=== PATIENT | male | born 1955 | race Caucasian/White ===

== ENCOUNTER 2018-10-19 17:27 | Inpatient (IN) | payer MEDICARE ==
[~2018-10-19] VITALS: Ht 170.2 cm; Wt 87.1 kg
[2018-10-19 17:43] LABS: BASOPHILS # (AUTO) 0.1 K/uL (0.0-8.0); BASOPHILS % (AUTO) 1.7 % (0.0-2.0); EOSINOPHILS # (AUTO) 0.2 K/uL (0.0-0.7); EOSINOPHILS % (AUTO) 3.9 % (0.0-7.0); HEMATOCRIT 38.5 % (36.7-47.1); HEMOGLOBIN 12.8 g/dL (12.5-16.3); LYMPHOCYTES # (AUTO) 1.7 K/uL (20.0-40.0); LYMPHOCYTES % (AUTO) 30.4 % (20.5-51.5); MEAN CORPUSCULAR HEMOGLOBIN 30.6 uug (23.8-33.4); MEAN CORPUSCULAR HGB CONC 33 g/dL (32.5-36.3); MEAN CORPUSCULAR VOLUME 92.2 fL (73.0-96.2); MONOCYTES # (AUTO) 0.8 K/uL (2.0-10.0); NEUTROPHILS # (AUTO) 2.9 K/uL (1.8-8.9); PLATELET COUNT (AUTO) 185 K/uL (152-348); RED BLOOD CELL COUNT(AUTO) 4.18 MIL/uL (4.06-5.63); WHITE BLOOD COUNT (AUTO) 5.7 K/uL (3.6-10.2)
[2018-10-19 17:51] LABS: CARBON DIOXIDE 26 mmol/L (21-32); CHLORIDE 107 mmol/L (98-107); CREATININE 1.2 mg/dL (0.6-1.3); GLUCOSE 92 mg/dL (74-106); POTASSIUM 3.6 mmol/L (3.5-5.1); UREA NITROGEN, BLOOD 24 mg/dL (7-18)
[2018-10-19 17:57] LABS: ALANINE AMINOTRANSFERASE 18 U/L (16-63); ALKALINE PHOSPHATASE 105 U/L (50-136); ASPARTATE AMINOTRANSFERASE 18 U/L (15-37); BILIRUBIN,DIRECT 0.1 mg/dL (0.0-0.2); BILIRUBIN,TOTAL 0.3 mg/dL (0.2-1.0); TOTAL PROTEIN, SERUM 6.9 g/dL (6.4-8.2)
[2018-10-19 17:58] LABS: ACETAMINOPHEN < 2.0 ug/mL (10-30)
[2018-10-19 18:00] LABS: ETHANOL < 3 MG/DL (0-0)
[2018-10-19] MEDS ORDERED: TEMA30CA PO (18:01)
[2018-10-19] MEDS ORDERED: CLON0.1T PO (18:01)
[2018-10-19] MEDS ORDERED: IPRA0.2S48 HHN (18:01)
[2018-10-19] MEDS ORDERED: CHOL200074 PO (18:01)
[2018-10-19] MEDS ORDERED: DOCU-270 PO (18:01)
[2018-10-19] MEDS ORDERED: FURO-151 PO (18:01)
[2018-10-19] MEDS ORDERED: DIVA250T4 PO (18:01)
[2018-10-19] MEDS ORDERED: POTA20TA83 PO (18:01)
[2018-10-19] MEDS ORDERED: ARIP5TAB10 PO (18:01)
[2018-10-19] MEDS ORDERED: LORA1TAB PO (18:01)
[2018-10-19] MEDS ORDERED: ALBU2.5V38 HHN (18:01)
[2018-10-19] MEDS ORDERED: LOSA50TA39 PO (18:01)
[2018-10-19 19:09] LABS: *BILIRUBIN,URIN NEGATIVE (NEGATIVE); *BLOOD, URINE NEGATIVE (NEGATIVE); *CLARITY,URINE CLEAR (CLEAR); *COLOR,URINE YELLOW (YELLOW); *KETONES,URINE NEGATIVE (NEGATIVE); *UROBILINOGEN,URINE 0.2 E.U./dl (NORMAL); LEUKOCYTE ESTERASE ,URINE NEGATIVE (NEGATIVE); NITRITE, URINE NEGATIVE (NEGATIVE); PH,URINE 5.5 (5.0-8.0); UGLUCOSE NEGATIVE (NEGATIVE)
[2018-10-19 19:27] LABS: *AMPHETAMINE, URINE NEGATIVE (NEGATIVE); *BARBITURATE, URINE NEGATIVE (NEGATIVE); *CANNABINOID, URINE NEGATIVE (NEGATIVE); *COCCAINE, URINE NEGATIVE (NEGATIVE); *OPIATE, URINE NEGATIVE (NEGATIVE); *PHENCYCLIDINE SCREEN,URINE NEGATIVE (NEGATIVE)
[2018-10-19] MEDS ORDERED: MAG HYDROX/AL HYDROX/SIMETH 30 ML LIQUID UDC PO PRN (20:00)
[2018-10-19] MEDS ORDERED: MAGNESIUM HYDROXIDE 30 ML LIQUID UDC PO PRN (20:00)
[2018-10-19] MEDS ORDERED: ACETAMINOPHEN 325 MG TABLET PO PRN (20:00)
[2018-10-19] MEDS ORDERED: ALBUTEROL SULFATE 2.5 MG/ 0.5 ML NEBU NEB PRN (21:15)
[2018-10-19] MEDS ORDERED: IPRATROPIUM BROMIDE 0.5 MG/2.5 ML NEBU NEB PRN (21:15)
[2018-10-19] MEDS: CLONAZEPAM 0.5 MG TABLET PO PRN (21:44)
[2018-10-20] MEDS: CLONAZEPAM 0.5 MG TABLET PO PRN (02:41)
[2018-10-20 07:30] VITALS: BP 122/90
[2018-10-20] MEDS: CLONIDINE HCL 0.1 MG TABLET PO SCH (09:00)
[2018-10-20] MEDS: LOSARTAN POTASSIUM 50 MG TABLET PO SCH (09:00)
[2018-10-20] MEDS: CHOLECALCIFEROL 1,000 UNIT TABLET PO SCH (09:00)
[2018-10-20] MEDS: DOCUSATE SODIUM 100 MG CAPSULE PO SCH ×2 (10:06→17:31)
[2018-10-20] MEDS: POTASSIUM CHLORIDE 20 MEQ TAB.PRT.SR PO SCH (10:06)
[2018-10-20] MEDS: FUROSEMIDE 40 MG TABLET PO SCH (10:09)
[2018-10-20] MEDS: ARIPIPRAZOLE 5 MG TABLET PO SCH ×2 (13:10→17:31)
[2018-10-20] MEDS: DIVALPROEX 250 MG TABLET.DR PO SCH ×2 (13:10→17:32)
[2018-10-20 16:00] VITALS: BP 130/86
[2018-10-20 20:53] VITALS: BP 133/87
[2018-10-20] MEDS: TEMAZEPAM 7.5 MG CAPSULE PO PRN (22:19)
[2018-10-21] MEDS: CLONAZEPAM 0.5 MG TABLET PO PRN ×2 (01:28→23:27)
[2018-10-21 07:30] VITALS: BP 119/91
[2018-10-21] MEDS: CLONIDINE HCL 0.1 MG TABLET PO SCH (09:00)
[2018-10-21] MEDS: LOSARTAN POTASSIUM 50 MG TABLET PO SCH (09:00)
[2018-10-21] MEDS: DOCUSATE SODIUM 100 MG CAPSULE PO SCH ×2 (09:26→17:18)
[2018-10-21] MEDS: FUROSEMIDE 40 MG TABLET PO SCH (09:27)
[2018-10-21] MEDS: POTASSIUM CHLORIDE 20 MEQ TAB.PRT.SR PO SCH (09:27)
[2018-10-21] MEDS: CHOLECALCIFEROL 1,000 UNIT TABLET PO SCH (09:28)
[2018-10-21] MEDS: ARIPIPRAZOLE 5 MG TABLET PO SCH ×3 (10:22→17:18)
[2018-10-21] MEDS: DIVALPROEX 250 MG TABLET.DR PO SCH ×3 (10:22→17:18)
[2018-10-21 15:55] VITALS: BP 148/98
[2018-10-21 20:45] VITALS: BP 138/93
[2018-10-22] MEDS: TEMAZEPAM 7.5 MG CAPSULE PO PRN ×2 (01:47→21:19)
[2018-10-22 07:30] VITALS: BP 139/97
[2018-10-22] MEDS: FUROSEMIDE 40 MG TABLET PO SCH (09:01)
[2018-10-22] MEDS: LOSARTAN POTASSIUM 50 MG TABLET PO SCH (09:02)
[2018-10-22] MEDS: CHOLECALCIFEROL 1,000 UNIT TABLET PO SCH (09:02)
[2018-10-22] MEDS: ARIPIPRAZOLE 5 MG TABLET PO SCH ×3 (09:02→17:24)
[2018-10-22] MEDS: POTASSIUM CHLORIDE 20 MEQ TAB.PRT.SR PO SCH (09:03)
[2018-10-22] MEDS: DOCUSATE SODIUM 100 MG CAPSULE PO SCH ×2 (09:03→17:24)
[2018-10-22] MEDS: DIVALPROEX 250 MG TABLET.DR PO SCH ×3 (09:06→17:24)
[2018-10-22] MEDS: CLONIDINE HCL 0.1 MG TABLET PO SCH (09:08)
[2018-10-22 20:09] VITALS: BP 119/78
[2018-10-22] MEDS: CLONAZEPAM 0.5 MG TABLET PO PRN (23:01)
[2018-10-23 06:57] LABS: BILIRUBIN,TOTAL 0.6 mg/dL (0.2-1.0); CREATININE 1.1 mg/dL (0.6-1.3); TOTAL PROTEIN, SERUM 7.1 g/dL (6.4-8.2)
[2018-10-23 07:30] VITALS: BP 129/98
[2018-10-23] MEDS: ARIPIPRAZOLE 5 MG TABLET PO SCH ×3 (08:30→16:02)
[2018-10-23] MEDS: CHOLECALCIFEROL 1,000 UNIT TABLET PO SCH (08:30)
[2018-10-23] MEDS: POTASSIUM CHLORIDE 20 MEQ TAB.PRT.SR PO SCH (08:30)
[2018-10-23] MEDS: FUROSEMIDE 40 MG TABLET PO SCH (08:31)
[2018-10-23] MEDS: DOCUSATE SODIUM 100 MG CAPSULE PO SCH ×2 (08:31→16:02)
[2018-10-23] MEDS: CLONIDINE HCL 0.1 MG TABLET PO SCH (08:31)
[2018-10-23] MEDS: DIVALPROEX 250 MG TABLET.DR PO SCH ×3 (08:31→16:02)
[2018-10-23] MEDS: LOSARTAN POTASSIUM 50 MG TABLET PO SCH (08:33)
[2018-10-23 15:39] VITALS: BP 119/80
[2018-10-23 20:11] VITALS: BP 111/71
[2018-10-23] MEDS: CLONAZEPAM 0.5 MG TABLET PO PRN (20:38)
[2018-10-23] MEDS: TEMAZEPAM 7.5 MG CAPSULE PO PRN (23:30)
[2018-10-24] MEDS: CLONAZEPAM 0.5 MG TABLET PO PRN ×3 (02:24→22:39)
[2018-10-24 07:30] VITALS: BP 143/81
[2018-10-24] MEDS: DOCUSATE SODIUM 100 MG CAPSULE PO SCH ×2 (08:12→16:17)
[2018-10-24] MEDS: CHOLECALCIFEROL 1,000 UNIT TABLET PO SCH (08:12)
[2018-10-24] MEDS: LOSARTAN POTASSIUM 50 MG TABLET PO SCH (08:13)
[2018-10-24] MEDS: CLONIDINE HCL 0.1 MG TABLET PO SCH (08:13)
[2018-10-24] MEDS: FUROSEMIDE 40 MG TABLET PO SCH (08:13)
[2018-10-24] MEDS: DIVALPROEX 250 MG TABLET.DR PO SCH ×2 (08:13→12:07)
[2018-10-24] MEDS: POTASSIUM CHLORIDE 20 MEQ TAB.PRT.SR PO SCH (08:13)
[2018-10-24] MEDS: ARIPIPRAZOLE 5 MG TABLET PO SCH ×3 (08:13→16:17)
[2018-10-24 16:00] VITALS: BP 119/70
[2018-10-24] MEDS ORDERED: DIVALPROEX 250 MG TABLET.DR PO SCH (17:00)
[2018-10-24] MEDS: DIVALPROEX 500 MG TABLET.DR PO SCH (17:01)
[2018-10-24 20:20] VITALS: BP 102/55
[2018-10-24 20:21] VITALS: BP 135/88
[2018-10-25] MEDS: TEMAZEPAM 7.5 MG CAPSULE PO PRN ×2 (00:58→23:08)
[2018-10-25 07:30] VITALS: BP 149/92
[2018-10-25 07:37] LABS: PHOSPHOROUS 3.5 mg/dL (2.5-4.9); POTASSIUM 4.1 mmol/L (3.5-5.1); URIC ACID 5.2 mg/dL (3.5-7.2)
[2018-10-25] MEDS: DOCUSATE SODIUM 100 MG CAPSULE PO SCH ×2 (08:38→16:19)
[2018-10-25] MEDS: DIVALPROEX 500 MG TABLET.DR PO SCH ×2 (08:38→16:19)
[2018-10-25] MEDS: ARIPIPRAZOLE 5 MG TABLET PO SCH ×3 (08:38→16:19)
[2018-10-25] MEDS: POTASSIUM CHLORIDE 20 MEQ TAB.PRT.SR PO SCH (08:38)
[2018-10-25] MEDS: LOSARTAN POTASSIUM 50 MG TABLET PO SCH (08:39)
[2018-10-25] MEDS: CLONIDINE HCL 0.1 MG TABLET PO SCH (08:39)
[2018-10-25] MEDS: FUROSEMIDE 40 MG TABLET PO SCH (08:39)
[2018-10-25] MEDS: CHOLECALCIFEROL 1,000 UNIT TABLET PO SCH (08:39)
[2018-10-25 09:47] LABS: THYROID STIMULATING HORMONE 0.758 mIU/mL (0.358-3.740)
[2018-10-25] MEDS: CLONAZEPAM 0.5 MG TABLET PO PRN (14:28)
[2018-10-25 16:00] VITALS: BP 119/80
[2018-10-25 19:44] VITALS: BP 138/90
[2018-10-26 07:30] VITALS: BP 138/95
[2018-10-26] MEDS: FUROSEMIDE 40 MG TABLET PO SCH (09:21)
[2018-10-26] MEDS: DIVALPROEX 500 MG TABLET.DR PO SCH ×2 (09:21→17:22)
[2018-10-26] MEDS: CHOLECALCIFEROL 1,000 UNIT TABLET PO SCH (09:21)
[2018-10-26] MEDS: ARIPIPRAZOLE 5 MG TABLET PO SCH ×3 (09:22→17:22)
[2018-10-26] MEDS: POTASSIUM CHLORIDE 20 MEQ TAB.PRT.SR PO SCH (09:22)
[2018-10-26] MEDS: LOSARTAN POTASSIUM 50 MG TABLET PO SCH (09:22)
[2018-10-26] MEDS: DOCUSATE SODIUM 100 MG CAPSULE PO SCH ×2 (09:22→17:22)
[2018-10-26] MEDS: CLONIDINE HCL 0.1 MG TABLET PO SCH (09:23)
[2018-10-26 16:00] VITALS: BP 122/85
[2018-10-26 19:52] VITALS: BP 126/77
[2018-10-26] MEDS: CLONAZEPAM 0.5 MG TABLET PO PRN (20:06)
[2018-10-27] MEDS: TEMAZEPAM 7.5 MG CAPSULE PO PRN (00:08)
[2018-10-27 07:30] VITALS: BP 126/81
[2018-10-27] MEDS: ARIPIPRAZOLE 5 MG TABLET PO SCH ×3 (08:15→16:11)
[2018-10-27] MEDS: CHOLECALCIFEROL 1,000 UNIT TABLET PO SCH (08:16)
[2018-10-27] MEDS: POTASSIUM CHLORIDE 20 MEQ TAB.PRT.SR PO SCH (08:16)
[2018-10-27] MEDS: DIVALPROEX 500 MG TABLET.DR PO SCH ×2 (08:16→16:11)
[2018-10-27] MEDS: CLONIDINE HCL 0.1 MG TABLET PO SCH (08:16)
[2018-10-27] MEDS: DOCUSATE SODIUM 100 MG CAPSULE PO SCH ×2 (08:16→16:11)
[2018-10-27] MEDS: FUROSEMIDE 40 MG TABLET PO SCH (08:17)
[2018-10-27] MEDS: LOSARTAN POTASSIUM 50 MG TABLET PO SCH (08:17)
[2018-10-27] MEDS: CLONAZEPAM 0.5 MG TABLET PO PRN (14:14)
[2018-10-27 16:00] VITALS: BP 114/70
[2018-10-27 20:43] VITALS: BP 138/81
[2018-10-28 07:30] VITALS: BP 123/83
[2018-10-28] MEDS: CHOLECALCIFEROL 1,000 UNIT TABLET PO SCH (08:00)
[2018-10-28] MEDS: FUROSEMIDE 40 MG TABLET PO SCH (08:00)
[2018-10-28] MEDS: DIVALPROEX 500 MG TABLET.DR PO SCH ×2 (08:01→16:00)
[2018-10-28] MEDS: DOCUSATE SODIUM 100 MG CAPSULE PO SCH ×2 (08:01→16:00)
[2018-10-28] MEDS: ARIPIPRAZOLE 5 MG TABLET PO SCH ×3 (08:01→16:00)
[2018-10-28] MEDS: POTASSIUM CHLORIDE 20 MEQ TAB.PRT.SR PO SCH (08:01)
[2018-10-28] MEDS: LOSARTAN POTASSIUM 50 MG TABLET PO SCH (08:05)
[2018-10-28] MEDS: CLONIDINE HCL 0.1 MG TABLET PO SCH (08:05)
[2018-10-28 08:13] LABS: BASOPHILS # (AUTO) 0.1 K/uL (0.0-8.0); BASOPHILS % (AUTO) 1.8 % (0.0-2.0); EOSINOPHILS # (AUTO) 0.2 K/uL (0.0-0.7); EOSINOPHILS % (AUTO) 4.7 % (0.0-7.0); HEMATOCRIT 36.9 % (36.7-47.1); HEMOGLOBIN 12.4 g/dL (12.5-16.3); LYMPHOCYTES % (AUTO) 19.6 % (20.5-51.5); MEAN CORPUSCULAR HEMOGLOBIN 31.1 uug (23.8-33.4); MEAN CORPUSCULAR HGB CONC 34 g/dL (32.5-36.3); MEAN CORPUSCULAR VOLUME 92.3 fL (73.0-96.2); MONOCYTES # (AUTO) 0.9 K/uL (2.0-10.0); MONOCYTES % (AUTO) 16.8 % (0.0-11.0); NEUTROPHILS % (AUTO) 57.1 % (38.5-71.5); PLATELET COUNT (AUTO) 195 K/uL (152-348); WHITE BLOOD COUNT (AUTO) 5.2 K/uL (3.6-10.2)
[2018-10-28 09:23] LABS: CREATININE 1.1 mg/dL (0.6-1.3); PHOSPHOROUS 3.8 mg/dL (2.5-4.9); POTASSIUM 3.8 mmol/L (3.5-5.1)
[2018-10-28 13:58] LABS: BAND % (MANUAL) 2 % (0-10); BASOPHILS % (MANUAL) 1 % (0-2); EOSINOPHILS % (MANUAL) 6 % (0-8); LYMPHOCYTES % (MANUAL) 20 % (20-40); MONOCYTES % (MANUAL) 15 % (2-10); NEUTROPHILS % (MANUAL) 56 % (42-75)
[2018-10-28 16:00] VITALS: BP 124/83
[2018-10-28 19:48] VITALS: BP 132/87
[2018-10-28] MEDS: CLONAZEPAM 0.5 MG TABLET PO PRN (19:51)
[2018-10-28] MEDS: TEMAZEPAM 7.5 MG CAPSULE PO PRN (23:37)
[2018-10-29 07:48] VITALS: BP 134/86
[2018-10-29] MEDS: CHOLECALCIFEROL 1,000 UNIT TABLET PO SCH (08:20)
[2018-10-29] MEDS: POTASSIUM CHLORIDE 20 MEQ TAB.PRT.SR PO SCH (08:20)
[2018-10-29] MEDS: DIVALPROEX 500 MG TABLET.DR PO SCH (08:20)
[2018-10-29] MEDS: DOCUSATE SODIUM 100 MG CAPSULE PO SCH ×2 (08:20→16:01)
[2018-10-29] MEDS: ARIPIPRAZOLE 5 MG TABLET PO SCH ×3 (08:20→16:01)
[2018-10-29] MEDS: CLONIDINE HCL 0.1 MG TABLET PO SCH (08:20)
[2018-10-29] MEDS: LOSARTAN POTASSIUM 50 MG TABLET PO SCH (08:21)
[2018-10-29] MEDS: FUROSEMIDE 40 MG TABLET PO SCH (08:33)
[2018-10-29] MEDS ORDERED: ALBUTEROL SULFATE 2.5 MG/3 ML NEBU NEB PRN (14:45)
[2018-10-29 15:46] VITALS: BP 109/73
[2018-10-29 20:15] VITALS: BP 117/76
[2018-10-29] MEDS: VALPROIC ACID 250 MG/5 ML LIQUID UDC PO SCH (20:18)
[2018-10-29] MEDS ORDERED: VALPROIC ACID 250 MG/5 ML LIQUID UDC PO SCH (21:00)
[2018-10-29] MEDS: TEMAZEPAM 7.5 MG CAPSULE PO PRN (22:57)
[2018-10-30 07:30] VITALS: BP 133/84
[2018-10-30] MEDS: DOCUSATE SODIUM 100 MG CAPSULE PO SCH (08:26)
[2018-10-30] MEDS: POTASSIUM CHLORIDE 20 MEQ TAB.PRT.SR PO SCH (08:26)
[2018-10-30] MEDS: CHOLECALCIFEROL 1,000 UNIT TABLET PO SCH (08:26)
[2018-10-30 08:28] VITALS: BP 133/84
[2018-10-30] MEDS: LOSARTAN POTASSIUM 50 MG TABLET PO SCH (08:28)
[2018-10-30] MEDS: ARIPIPRAZOLE 5 MG TABLET PO SCH (08:28)
[2018-10-30] MEDS: CLONIDINE HCL 0.1 MG TABLET PO SCH (08:28)
[2018-10-30] MEDS: VALPROIC ACID 250 MG/5 ML LIQUID UDC PO SCH (08:29)
[2018-10-30] MEDS: FUROSEMIDE 40 MG TABLET PO SCH (08:29)
== END 2018-10-30 12:00 | DRG 885 ==
LOC: ER 17:31 → GPS 18:58
PROVIDERS: ADMIT Psychiatry & Neurology Psychiatry; ATTEND Nurse Practitioner Acute Care
DX: F29 Unspecified psychosis not due to a substance or known physiological condition (principal); N18.9 Chronic kidney disease, unspecified; I13.0 Hypertensive heart and chronic kidney disease with heart failure and stage 1 through stage 4 chronic kidney disease, or unspecified chronic kidney disease; F03.91 Unspecified dementia, unspecified severity, with behavioral disturbance; E87.1 Hypo-osmolality and hyponatremia; I50.9 Heart failure, unspecified; J44.9 Chronic obstructive pulmonary disease, unspecified; E66.9 Obesity, unspecified; Z68.29 Body mass index [BMI] 29.0-29.9, adult; Z71.3 Dietary counseling and surveillance; Z86.59 Personal history of other mental and behavioral disorders; I25.10 Atherosclerotic heart disease of native coronary artery without angina pectoris; Z79.899 Other long term (current) drug therapy; F17.210 Nicotine dependence, cigarettes, uncomplicated; T50.1X5A Adverse effect of loop [high-ceiling] diuretics, initial encounter; Y92.099 Unspecified place in other non-institutional residence as the place of occurrence of the external cause; N28.9 Disorder of kidney and ureter, unspecified
CPT/HCPCS: 36415; 80164; 80307; 83735; 84100; 84443; 84550; 85025; 93005; 97116; A4663; G0480; G0480-TC; J3490

== ENCOUNTER 2018-12-13 21:24 | Inpatient (IN) | payer MEDICARE ==
[~2018-12-13] VITALS: Ht 172.7 cm; Wt 85.3 kg
[~2018-12-13 21:24] MED LIST: ALBU2.5V38 HHN; CHOL200074 PO; CLON0.1T PO; DOCU-270 PO; FURO-151 PO; IPRA0.2S48 HHN; LOSA50TA39 PO; POTA20TA83 PO
[2018-12-13] MEDS ORDERED: CICL15CR12 TP (22:12)
[2018-12-13] MEDS ORDERED: DIVA-78 PO (22:12)
[2018-12-13] MEDS ORDERED: DIVA250T4 PO (22:12)
[2018-12-13] MEDS ORDERED: [UNRECOGNIZED DRUG - SUPPLY] INH (22:12)
[2018-12-13] MEDS ORDERED: TRIA15OI9 TP (22:12)
[2018-12-13] MEDS ORDERED: LORA1TAB PO (22:12)
[2018-12-13] MEDS ORDERED: ARIP5TAB10 PO (22:12)
[2018-12-13] MEDS ORDERED: TEMA30CA PO (22:12)
--- NOTE | 2018-12-13 22:22 | NUR ---
Pt provided urine sample, sent to lab.
[2018-12-13 22:32] LABS: *BILIRUBIN,URIN NEGATIVE (NEGATIVE); *BLOOD, URINE NEGATIVE (NEGATIVE); *CLARITY,URINE CLEAR (CLEAR); *COLOR,URINE YELLOW (YELLOW); *KETONES,URINE NEGATIVE (NEGATIVE); *UROBILINOGEN,URINE 0.2 E.U./dl (NORMAL); LEUKOCYTE ESTERASE ,URINE NEGATIVE (NEGATIVE); NITRITE, URINE NEGATIVE (NEGATIVE); PH,URINE 6.5 (5.0-8.0); UGLUCOSE NEGATIVE (NEGATIVE)
[2018-12-13 22:33] LABS: BASOPHILS # (AUTO) 0.1 K/uL (0.0-8.0); EOSINOPHILS # (AUTO) 0.3 K/uL (0.0-0.7); EOSINOPHILS % (AUTO) 4.9 % (0.0-7.0); HEMATOCRIT 38.3 % (36.7-47.1); HEMOGLOBIN 12.8 g/dL (12.5-16.3); LYMPHOCYTES # (AUTO) 1.8 K/uL (20.0-40.0); LYMPHOCYTES % (AUTO) 28.5 % (20.5-51.5); MEAN CORPUSCULAR HEMOGLOBIN 31.2 uug (23.8-33.4); MEAN CORPUSCULAR HGB CONC 34 g/dL (32.5-36.3); MONOCYTES # (AUTO) 0.9 K/uL (2.0-10.0); MONOCYTES % (AUTO) 14.1 % (0.0-11.0); NEUTROPHILS # (AUTO) 3.2 K/uL (1.8-8.9); NEUTROPHILS % (AUTO) 50.5 % (38.5-71.5); PLATELET COUNT (AUTO) 142 K/uL (152-348); RED BLOOD CELL COUNT(AUTO) 4.12 MIL/uL (4.06-5.63); WHITE BLOOD COUNT (AUTO) 6.3 K/uL (3.6-10.2)
[2018-12-13 22:40] LABS: CARBON DIOXIDE 25 mmol/L (21-32); CHLORIDE 110 mmol/L (98-107); CREATININE 1.5 mg/dL (0.6-1.3); GLUCOSE 92 mg/dL (74-106); POTASSIUM 3.9 mmol/L (3.5-5.1); UREA NITROGEN, BLOOD 27 mg/dL (7-18)
[2018-12-13 22:42] LABS: *AMPHETAMINE, URINE NEGATIVE (NEGATIVE); *BARBITURATE, URINE NEGATIVE (NEGATIVE); *CANNABINOID, URINE NEGATIVE (NEGATIVE); *COCCAINE, URINE NEGATIVE (NEGATIVE); *OPIATE, URINE NEGATIVE (NEGATIVE); *PHENCYCLIDINE SCREEN,URINE NEGATIVE (NEGATIVE)
[2018-12-13 22:45] LABS: ALANINE AMINOTRANSFERASE 42 U/L (16-63); ALKALINE PHOSPHATASE 95 U/L (50-136); ASPARTATE AMINOTRANSFERASE 33 U/L (15-37); BILIRUBIN,DIRECT 0.1 mg/dL (0.0-0.2); BILIRUBIN,TOTAL 0.4 mg/dL (0.2-1.0); TOTAL PROTEIN, SERUM 6.8 g/dL (6.4-8.2)
[2018-12-13 22:50] LABS: ETHANOL < 3 MG/DL (0-0)
[2018-12-13 22:52] LABS: ACETAMINOPHEN < 2.0 ug/mL (10-30)
[2018-12-13 22:53] LABS: THYROID STIMULATING HORMONE 0.878 mIU/mL (0.358-3.740)
--- NOTE | 2018-12-13 23:21 | NUR ---
Pt medically cleared by Dr. Osman.
--- NOTE | 2018-12-13 23:28 | NUR ---
Report given to [facility]. All belongings with patient.
[2018-12-14] MEDS ORDERED: MAG HYDROX/AL HYDROX/SIMETH 30 ML LIQUID UDC PO PRN (00:15)
[2018-12-14] MEDS ORDERED: MAGNESIUM HYDROXIDE 30 ML LIQUID UDC PO PRN (00:15)
[2018-12-14] MEDS ORDERED: ACETAMINOPHEN 325 MG TABLET PO PRN (00:15)
[2018-12-14] MEDS ORDERED: BLOOD SUGAR DIAGNOSTIC 1 EACH STRIP VI ONE (00:15)
[2018-12-14] MEDS ORDERED: CLONAZEPAM 0.5 MG TABLET PO PRN (00:15)
--- NOTE | 2018-12-14 03:31 | NUR ---
received to care, at 2335, from the emergency room, on a 72 hour hold for gravely disabled, a transfer from [facility]. according to the hold, he had been observed to be urinating in common areas around the facility. he was also reported to believe that "soviets are out to get staff". he also has been refusing hygiene, care, and refusing to let housekeeping clean his room. upon arrival, he was pleasant, and cooperative. he denied the reports of his behavior. 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 after the interview, he was assisted with a shower, and went to sleep. as of now, he continues to sleep. no distress noted.
--- NOTE | 2018-12-14 06:00 | NUR ---
slept 3.5 hours. is now awake. no distress noted.
[2018-12-14 08:00] VITALS: BP 152/100
--- NOTE | 2018-12-14 09:46 | NUR ---
Patient in room. Calm and cooperative. Alert awake x2-3. Ensured safety. Encouraged to ambulate with walker.
--- NOTE | 2018-12-14 10:49 | NUR ---
FIREARMS REPORT: Ship Engineer completed and submitted a [employer] firearms report for 5250 grave disability certification. A copy of report has been placed in patient chart.
[2018-12-14] MEDS ORDERED: IPRATROPIUM BROMIDE 0.5 MG/2.5 ML NEBU INH PRN (14:30)
[2018-12-14] MEDS ORDERED: ALBUTEROL SULFATE 2.5 MG/3 ML NEBU INH PRN (14:30)
[2018-12-14] MEDS: DIVALPROEX 500 MG TABLET.DR PO SCH ×2 (14:55→20:44)
--- NOTE | 2018-12-14 15:11 | NUR ---
Initial discharge note Patient is a 63 year old male who currently lives at [facility] [[address] [place] [address]; [phone]] assisted living center. Per patient, "i would like to return there". skid worker spoke with Mackenzie [marketing administrative assistant] at [facility] who states patient will be able to return upon discharge. Patient has no next of kin. SW will continue to collaborate with patient and MD to form a safe and proper discharge plan.
[2018-12-14 16:00] VITALS: BP 149/95
[2018-12-14] MEDS: DOCUSATE SODIUM 100 MG CAPSULE PO SCH (17:00)
[2018-12-14 19:16] LABS: *BILIRUBIN,URIN NEGATIVE (NEGATIVE); *BLOOD, URINE NEGATIVE (NEGATIVE); *CLARITY,URINE CLEAR (CLEAR); *COLOR,URINE YELLOW (YELLOW); *KETONES,URINE NEGATIVE (NEGATIVE); *UROBILINOGEN,URINE 0.2 E.U./dl (NORMAL); LEUKOCYTE ESTERASE ,URINE NEGATIVE (NEGATIVE); NITRITE, URINE NEGATIVE (NEGATIVE); UGLUCOSE NEGATIVE (NEGATIVE)
[2018-12-14 19:21] LABS: *CREATININE,URINE 36.8 mg/dL (30-125)
[2018-12-14] MEDS: DIVALPROEX 250 MG TABLET.DR PO SCH (20:44)
[2018-12-14] MEDS: OLANZAPINE ZYDIS 5 MG TAB.RAPDIS PO SCH (20:44)
[2018-12-14 21:17] VITALS: BP 130/90
--- NOTE | 2018-12-14 22:00 | NUR ---
received to care, watching tv with peers, minimal interaction, pleasant upon approach. compliant with medications, snacks, and staff direction. as of 2199, he remains awake, sitting in a chair in his room, quietly. PRN offered for insomnia, but he declined. encouraged to let staff know, if he changes his mind. will continue to monitor closely.
--- NOTE | 2018-12-15 00:30 | NUR ---
appears to be asleep, in the chair, in his room. no distress noted.
--- NOTE | 2018-12-15 01:00 | NUR ---
is now awake. offered PRN medication for sleep, but he declined. remains calm. no distress noted.
--- NOTE | 2018-12-15 06:00 | NUR ---
slept 30 minutes, total. remains sitting in chair in room, quietly. no distress noted.
[2018-12-15 07:17] LABS: BASOPHILS # (AUTO) 0.1 K/uL (0.0-8.0); BASOPHILS % (AUTO) 1.5 % (0.0-2.0); EOSINOPHILS # (AUTO) 0.3 K/uL (0.0-0.7); EOSINOPHILS % (AUTO) 4.4 % (0.0-7.0); HEMATOCRIT 40.1 % (36.7-47.1); HEMOGLOBIN 13.4 g/dL (12.5-16.3); LYMPHOCYTES # (AUTO) 1.5 K/uL (20.0-40.0); LYMPHOCYTES % (AUTO) 22.6 % (20.5-51.5); MEAN CORPUSCULAR HEMOGLOBIN 31.7 uug (23.8-33.4); MEAN CORPUSCULAR HGB CONC 34 g/dL (32.5-36.3); MEAN CORPUSCULAR VOLUME 94.6 fL (73.0-96.2); MONOCYTES % (AUTO) 14.9 % (0.0-11.0); NEUTROPHILS # (AUTO) 3.8 K/uL (1.8-8.9); NEUTROPHILS % (AUTO) 56.6 % (38.5-71.5); PLATELET COUNT (AUTO) 148 K/uL (152-348); RED BLOOD CELL COUNT(AUTO) 4.24 MIL/uL (4.06-5.63); WHITE BLOOD COUNT (AUTO) 6.7 K/uL (3.6-10.2)
[2018-12-15 07:29] LABS: BILIRUBIN,TOTAL 0.7 mg/dL (0.2-1.0); CREATININE 1.2 mg/dL (0.6-1.3); POTASSIUM 3.6 mmol/L (3.5-5.1); TOTAL PROTEIN, SERUM 7.2 g/dL (6.4-8.2)
[2018-12-15 07:30] VITALS: BP 133/101
[2018-12-15 07:45] LABS: MAGNESIUM 1.9 mg/dL (1.8-2.4); PHOSPHOROUS 3.4 mg/dL (2.5-4.9)
[2018-12-15] MEDS ORDERED: CICLOPIROX 0.77% CREAM 30 GM TUBE TP SCH (09:00)
[2018-12-15] MEDS: FUROSEMIDE 40 MG TABLET PO SCH (09:03)
[2018-12-15] MEDS: LOSARTAN POTASSIUM 50 MG TABLET PO SCH (09:03)
[2018-12-15] MEDS: DOCUSATE SODIUM 100 MG CAPSULE PO SCH ×2 (09:03→16:19)
[2018-12-15] MEDS: DIVALPROEX 500 MG TABLET.DR PO SCH ×2 (09:03→20:30)
[2018-12-15] MEDS: CHOLECALCIFEROL 1,000 UNIT TABLET PO SCH (09:03)
[2018-12-15] MEDS: POTASSIUM CHLORIDE 20 MEQ TAB.PRT.SR PO SCH (09:03)
[2018-12-15 16:00] VITALS: BP 127/82
--- NOTE | 2018-12-15 18:34 | NUR ---
patient is awake and walking around, need frequent redirection. Patient is calm and cooperative. No signs of distress. compliant with medications. will endorse to oncoming nurse.
[2018-12-15] MEDS: DIVALPROEX 250 MG TABLET.DR PO SCH (20:29)
[2018-12-15] MEDS: OLANZAPINE ZYDIS 5 MG TAB.RAPDIS PO SCH (20:30)
[2018-12-15 21:41] VITALS: BP 132/89
--- NOTE | 2018-12-15 22:28 | NUR ---
RECIVED PATIENT IN TV ROOM INTERACTING WITH PEERS. PLEASANT UPON APPROACH BUT COULD BE HEARD MUTTERING UNDER HIS BREATH 'FUCK YOU'.COMPLIANT WITH MEDS WITH MINIMAL INTERACTION.NO PAIN OR DISCOMFORT WAS MADE IN THIS SHIFT.
[2018-12-16] MEDS: TEMAZEPAM 7.5 MG CAPSULE PO PRN ×2 (01:11→23:56)
--- NOTE | 2018-12-16 06:47 | NUR ---
SLEPT FOR APPROX 02;00HRS.HE WAS GIVEN RESTORIL AT 01;10.WOKE UP LATER AND SAID A 2 HOUR SLEEP IS ENOUGH FOR HIM.CALLED 2 PHONE NUMBERS THIS MORNING TO INFORM FAMILY.ONE WAS A NON WORKING NUMBER AND THE OTHER GAVE A BUSY SIGNAL.
[2018-12-16 07:30] VITALS: BP 143/108
[2018-12-16] MEDS: LOSARTAN POTASSIUM 50 MG TABLET PO SCH (08:35)
[2018-12-16] MEDS: DOCUSATE SODIUM 100 MG CAPSULE PO SCH ×2 (08:36→17:26)
[2018-12-16] MEDS: CHOLECALCIFEROL 1,000 UNIT TABLET PO SCH (08:36)
[2018-12-16] MEDS: DIVALPROEX 500 MG TABLET.DR PO SCH ×2 (08:36→20:16)
[2018-12-16] MEDS: POTASSIUM CHLORIDE 20 MEQ TAB.PRT.SR PO SCH (08:36)
[2018-12-16] MEDS: FUROSEMIDE 40 MG TABLET PO SCH (08:37)
[2018-12-16 16:00] VITALS: BP 139/74
--- NOTE | 2018-12-16 20:00 | NUR ---
RECEIVED PATIENT IN HIS ROOM SITTING IN HIS BED. HE IS NOTED WITH INCONGRUENT MOOD, BRIGHT AFFECT. UNCONTROLLED LAUGHS (FOR NO REASON) LABILE, DISORGANIZED SPEECH, AND DELUSIONAL THINKING. V/S STABLE. PATIENT IS REASSURED FOR HIS SAFETY. HE IS ABLE TO AMBULATE WITH STEADY GAIT WITH THE AID OF A WALKER; HOWEVER, HE NEEDS REDIRECTIONS TO USE HIS WALKER. SAFETY AND FALL PRECAUTION IN PLACE. WILL CONTINUE TO MONITOR.
[2018-12-16 20:08] VITALS: BP 137/96
[2018-12-16] MEDS: OLANZAPINE ZYDIS 5 MG TAB.RAPDIS PO SCH (20:16)
[2018-12-16] MEDS: DIVALPROEX 250 MG TABLET.DR PO SCH (20:16)
--- NOTE | 2018-12-17 07:26 | NUR ---
patient slept for approx 3.30 hrs through the night. Temazepam 7.5mg po prn was given at 0000. it was partially effective. patient continue with bright affect, incongruent mood and flight of ideas. no aggressive/combative bx noted or reported during the shift. will continue to monitor.
[2018-12-17] MEDS: POTASSIUM CHLORIDE 20 MEQ TAB.PRT.SR PO SCH (08:50)
[2018-12-17] MEDS: DIVALPROEX 500 MG TABLET.DR PO SCH ×2 (08:50→20:07)
[2018-12-17] MEDS: DOCUSATE SODIUM 100 MG CAPSULE PO SCH ×2 (08:50→16:34)
[2018-12-17] MEDS: CHOLECALCIFEROL 1,000 UNIT TABLET PO SCH (08:50)
[2018-12-17] MEDS: LOSARTAN POTASSIUM 50 MG TABLET PO SCH (08:51)
[2018-12-17] MEDS: FUROSEMIDE 40 MG TABLET PO SCH (08:52)
[2018-12-17] MEDS: OLANZAPINE 2.5 MG TABLET PO SCH (10:40)
[2018-12-17 10:41] VITALS: BP 155/97
[2018-12-17 15:21] VITALS: BP 146/84
[2018-12-17] MEDS: DIVALPROEX 250 MG TABLET.DR PO SCH (20:07)
[2018-12-17] MEDS: OLANZAPINE ZYDIS 5 MG TAB.RAPDIS PO SCH (20:08)
[2018-12-17 20:30] VITALS: BP 147/86
--- NOTE | 2018-12-17 21:23 | NUR ---
Received patient in the hallway, calm and cooperative, denies SI/HI. med compliant. interacts with other patients. no aggressive behavior noted. vital signs normal. will continue to monitor patient safety.
--- NOTE | 2018-12-17 23:00 | NUR ---
remains calm, and cooperative. observed talking to self, and laughing inappropriately. compliant with medications, and staff direction. as of 2299, he remains awake, but calm. PRN for insomnia was offered, but he declined. will continue to monitor clsoely.
[2018-12-18 07:30] VITALS: BP 156/104
[2018-12-18] MEDS: DIVALPROEX 500 MG TABLET.DR PO SCH ×2 (08:31→20:58)
[2018-12-18] MEDS: CHOLECALCIFEROL 1,000 UNIT TABLET PO SCH (08:31)
[2018-12-18] MEDS: LOSARTAN POTASSIUM 50 MG TABLET PO SCH (08:31)
[2018-12-18] MEDS: DOCUSATE SODIUM 100 MG CAPSULE PO SCH ×2 (08:31→16:03)
[2018-12-18] MEDS: OLANZAPINE 2.5 MG TABLET PO SCH (08:31)
[2018-12-18] MEDS: POTASSIUM CHLORIDE 20 MEQ TAB.PRT.SR PO SCH (08:34)
[2018-12-18] MEDS: FUROSEMIDE 40 MG TABLET PO SCH (08:34)
--- NOTE | 2018-12-18 11:03 | NUR ---
GPS: PATIENT BP WAS NOTED OF ELEVATED WITH 167/123, MEDS GIVEN AND MD AWARE, RECHECK BP 154/105
--- NOTE | 2018-12-18 14:09 | NUR ---
TRIED CALLING BACK PATIENTS MOTHER MORENITA , LEFT MESSAGE , ITS BEEN 3X THAT THE CONTACT INFO USED AND STILL NO RETURN CALL, CALLED [facility] [place] REGARDING THE CONTACT INFO OF RESP. DEMOCRAT, ACCORDING TO ALLAN THAT PATIENTS MOM DISEASED, AND THEY USE THE CONTACT INFO OF SHARRON BRAGG [phone], LEFT MESSAGE WAITING FOR REPLY
--- NOTE | 2018-12-18 15:12 | NUR ---
PATIENT COUSIN SHARRON BRAGG RETURNED CALLED, MADE AWARE OF PATIENTS CONDITION,
[2018-12-18 15:17] VITALS: BP 150/97
[2018-12-18] MEDS: DIVALPROEX 250 MG TABLET.DR PO SCH (20:58)
[2018-12-18] MEDS: OLANZAPINE ZYDIS 5 MG TAB.RAPDIS PO SCH (20:58)
[2018-12-18 21:48] VITALS: BP 147/95
--- NOTE | 2018-12-18 22:00 | NUR ---
received to care, mostly isolative, minimal interactions with peers, but pleasant upon approach. compliant with medications, snacks, and staff direction. as of 2199, he remains awake, sitting in a chair in his room, quietly. PRN offered for insomnia, but he declined. no distress noted. will continue to monitor closely.
[2018-12-18] MEDS: TEMAZEPAM 7.5 MG CAPSULE PO PRN (23:07)
--- NOTE | 2018-12-18 23:07 | NUR ---
PRN restoril, given for insomnia.
--- NOTE | 2018-12-19 | NUR ---
appears to be asleep. no distress noted.
--- NOTE | 2018-12-19 06:00 | NUR ---
slept 3 hours, total. is now awake, watching tv. no distress noted.
[2018-12-19 07:30] VITALS: BP 139/97
[2018-12-19] MEDS: DOCUSATE SODIUM 100 MG CAPSULE PO SCH ×2 (08:17→16:01)
[2018-12-19] MEDS: CHOLECALCIFEROL 1,000 UNIT TABLET PO SCH (08:17)
[2018-12-19] MEDS: OLANZAPINE 5 MG TABLET PO SCH (08:17)
[2018-12-19] MEDS: LOSARTAN POTASSIUM 50 MG TABLET PO SCH (08:17)
[2018-12-19] MEDS: DIVALPROEX 500 MG TABLET.DR PO SCH ×2 (08:17→20:25)
[2018-12-19] MEDS: POTASSIUM CHLORIDE 20 MEQ TAB.PRT.SR PO SCH (08:18)
[2018-12-19] MEDS: FUROSEMIDE 40 MG TABLET PO SCH (08:18)
[2018-12-19] MEDS ORDERED: OLANZAPINE 2.5 MG TABLET PO SCH (09:00)
--- NOTE | 2018-12-19 09:33 | NUR ---
Patient has Payee Received call from Alvarado Monaco [ ] stating he is the patient's cousin, and Payee. Informed SW that he lives several hours away, and if needed he is willing to fly out here should the patient need his help for anything.
[2018-12-19] MEDS ORDERED: DIATRIZOATE MEGLUMINE 300 ML INFUS..BTL ONE (13:13)
[2018-12-19 16:00] VITALS: BP 131/93
--- NOTE | 2018-12-19 16:58 | NUR ---
GPS: RECEIVED PATIENT AOX1, PATIENT AMBULATES ON FWW, PATIENT DENIES SI AND HI, CALM AND COOPERATIVE, COMPLIANT WITH MEDICATION, CONFISCATED PLASTIC BOTTLE FULL OF URINE, PATIENT REMAIN CALM AND ABLE TO REDIRECT, WILL CONTINUE MONITOR
--- NOTE | 2018-12-19 17:40 | NUR ---
patient seen by algebra teacher that drinking from bottle with water and urine , patient redirected, and patient told if he needs water to get it from the nurse on the cup,
[2018-12-19] MEDS: DIVALPROEX 250 MG TABLET.DR PO SCH (20:26)
[2018-12-19] MEDS: OLANZAPINE ZYDIS 5 MG TAB.RAPDIS PO SCH (20:26)
[2018-12-19 20:46] VITALS: BP 139/97
--- NOTE | 2018-12-19 21:33 | NUR ---
PATIENT RECEIVED WONDERING THE UNIT WITH FWW. PATIENT AOX1, DENEIS SI AND HI, PATIENT COMPLIANT WITH MEDICATION, CALM AND COOPERATIVE, WILL CONTINUE TO MONITOR. NO AGGRESSIVE BEHAVIOR NOTED WILL CONTINUE TO MONITOR AND REDIRECT NEEDED.
--- NOTE | 2018-12-20 03:38 | NUR ---
PATIENT REFUSED SLEEPING AID WHEN OFFERED, BECAME LABILE REQUIRED REDIRECTION. WILL CONTINUE TO MONITOR AND REDIRECT NEEDED.
[2018-12-20 07:30] VITALS: BP 147/93
[2018-12-20] MEDS: CHOLECALCIFEROL 1,000 UNIT TABLET PO SCH (08:53)
[2018-12-20] MEDS: OLANZAPINE 5 MG TABLET PO SCH (08:54)
[2018-12-20] MEDS: FUROSEMIDE 40 MG TABLET PO SCH (08:54)
[2018-12-20] MEDS: LOSARTAN POTASSIUM 50 MG TABLET PO SCH (08:54)
[2018-12-20] MEDS: DIVALPROEX 500 MG TABLET.DR PO SCH ×2 (08:54→20:15)
[2018-12-20] MEDS: DOCUSATE SODIUM 100 MG CAPSULE PO SCH ×2 (08:55→17:38)
[2018-12-20] MEDS: POTASSIUM CHLORIDE 20 MEQ TAB.PRT.SR PO SCH (08:55)
--- NOTE | 2018-12-20 13:27 | NUR ---
Gps/Heavy Equipment Technician- Ambulates around w/ front wheel walker, safety reviewed and continue to emphasized. Follow simple directions. Stayed in his activity during his group therapy.Goes to the bathroom with fww.
[2018-12-20 18:00] VITALS: BP 133/99
[2018-12-20 20:00] VITALS: BP 141/99
[2018-12-20] MEDS: DIVALPROEX 250 MG TABLET.DR PO SCH (20:14)
[2018-12-20] MEDS: OLANZAPINE ZYDIS 5 MG TAB.RAPDIS PO SCH (20:15)
[2018-12-20] MEDS: TEMAZEPAM 7.5 MG CAPSULE PO PRN (22:13)
[2018-12-21 07:51] VITALS: BP 131/98
[2018-12-21] MEDS: OLANZAPINE 5 MG TABLET PO SCH (08:27)
[2018-12-21] MEDS: FUROSEMIDE 40 MG TABLET PO SCH (08:28)
[2018-12-21] MEDS: DIVALPROEX 500 MG TABLET.DR PO SCH ×2 (08:28→20:57)
[2018-12-21] MEDS: CHOLECALCIFEROL 1,000 UNIT TABLET PO SCH (08:28)
[2018-12-21] MEDS: POTASSIUM CHLORIDE 20 MEQ TAB.PRT.SR PO SCH (08:29)
[2018-12-21] MEDS: LOSARTAN POTASSIUM 50 MG TABLET PO SCH (08:29)
[2018-12-21] MEDS: DOCUSATE SODIUM 100 MG CAPSULE PO SCH ×2 (08:29→17:05)
[2018-12-21 16:00] VITALS: BP 139/99
--- NOTE | 2018-12-21 17:36 | NUR ---
Gps/Shipping Inspector- Stayed in the activity room during meals. Continue to be compliant with his routine medications. Had been in and out of the activity room, encouraged to stay in his group therapy during the sessions.
[2018-12-21 20:19] VITALS: BP 142/94
[2018-12-21] MEDS: DIVALPROEX 250 MG TABLET.DR PO SCH (20:55)
[2018-12-21] MEDS: OLANZAPINE ZYDIS 5 MG TAB.RAPDIS PO SCH (20:57)
--- NOTE | 2018-12-22 05:58 | NUR ---
GPS: pt remains cooperative with medication but refused shower this morning. pt slept 5 hours throughout the night. resting in bed in his room no behavior issue noted. continue monitoring for unsteady gait
[2018-12-22 08:00] VITALS: BP 145/47
[2018-12-22] MEDS: DIVALPROEX 500 MG TABLET.DR PO SCH ×2 (08:19→20:04)
[2018-12-22] MEDS: LOSARTAN POTASSIUM 50 MG TABLET PO SCH (08:19)
[2018-12-22] MEDS: OLANZAPINE 5 MG TABLET PO SCH (08:19)
[2018-12-22] MEDS: POTASSIUM CHLORIDE 20 MEQ TAB.PRT.SR PO SCH (08:19)
[2018-12-22] MEDS: CHOLECALCIFEROL 1,000 UNIT TABLET PO SCH (08:19)
[2018-12-22] MEDS: DOCUSATE SODIUM 100 MG CAPSULE PO SCH ×2 (08:19→16:11)
[2018-12-22] MEDS: FUROSEMIDE 40 MG TABLET PO SCH (08:20)
[2018-12-22 16:24] VITALS: BP 136/94
--- NOTE | 2018-12-22 17:54 | NUR ---
GPS: patient aox1, ambulatory on FWW, patient compliant with his medication, however refuse taking shower, patient kept safe, wears non skid socks at all time, patient easily irritable , denies SI and HI,
[2018-12-22] MEDS: DIVALPROEX 250 MG TABLET.DR PO SCH (20:05)
[2018-12-22] MEDS: OLANZAPINE ZYDIS 5 MG TAB.RAPDIS PO SCH (20:05)
[2018-12-22 21:17] VITALS: BP 153/97
--- NOTE | 2018-12-22 23:00 | NUR ---
received to care, pleasant upon approach. compliant with medications, snacks, and staff direction. minimally interactive, with peers. behavior is appropriate. as of 2299, he appears to be asleep. no distress noted. will continue to monitor closely.
--- NOTE | 2018-12-23 02:50 | NUR ---
is now awake. slept 3 hours, so far. appears slightly restless. offered PRN medication, but he declined. he was assisted with a shower, and then went back to bed.
--- NOTE | 2018-12-23 06:08 | NUR ---
slept 3.5 hours, total. is now awake, watching tv. no distress noted.
[2018-12-23 06:48] LABS: BASOPHILS # (AUTO) 0.1 K/uL (0.0-8.0); EOSINOPHILS # (AUTO) 0.1 K/uL (0.0-0.7)
[2018-12-23 07:00] LABS: MAGNESIUM 1.9 mg/dL (1.8-2.4); PHOSPHOROUS 3.6 mg/dL (2.5-4.9); POTASSIUM 4.2 mmol/L (3.5-5.1)
[2018-12-23 07:30] VITALS: BP 119/80
[2018-12-23 07:36] LABS: BASOPHILS % (AUTO) 3.2 % (0.0-2.0); EOSINOPHILS % (AUTO) 2.4 % (0.0-7.0); HEMATOCRIT 35.9 % (36.7-47.1); HEMOGLOBIN 12.3 g/dL (12.5-16.3); LYMPHOCYTES # (AUTO) 0.7 K/uL (20.0-40.0); LYMPHOCYTES % (AUTO) 17.4 % (20.5-51.5); MEAN CORPUSCULAR HEMOGLOBIN 31.5 uug (23.8-33.4); MEAN CORPUSCULAR HGB CONC 34 g/dL (32.5-36.3); MONOCYTES # (AUTO) 1.8 K/uL (2.0-10.0); MONOCYTES % (AUTO) 43.5 % (0.0-11.0); NEUTROPHILS # (AUTO) 1.4 K/uL (1.8-8.9); NEUTROPHILS % (AUTO) 33.5 % (38.5-71.5); PLATELET COUNT (AUTO) 127 K/uL (152-348); WHITE BLOOD COUNT (AUTO) 4.2 K/uL (3.6-10.2)
[2018-12-23] MEDS: FUROSEMIDE 40 MG TABLET PO SCH (08:07)
[2018-12-23] MEDS: POTASSIUM CHLORIDE 20 MEQ TAB.PRT.SR PO SCH (08:07)
[2018-12-23] MEDS: OLANZAPINE 5 MG TABLET PO SCH (08:07)
[2018-12-23] MEDS: DIVALPROEX 500 MG TABLET.DR PO SCH ×2 (08:07→20:16)
[2018-12-23] MEDS: CHOLECALCIFEROL 1,000 UNIT TABLET PO SCH (08:07)
[2018-12-23] MEDS: LOSARTAN POTASSIUM 50 MG TABLET PO SCH (08:07)
[2018-12-23 08:10] LABS: BAND % (MANUAL) 3 % (0-10); BASOPHILS % (MANUAL) 1 % (0-2); EOSINOPHILS % (MANUAL) 3 % (0-8); LYMPHOCYTES % (MANUAL) 14 % (20-40); MONOCYTES % (MANUAL) 35 % (2-10); NEUTROPHILS % (MANUAL) 44 % (42-75)
[2018-12-23] MEDS: DOCUSATE SODIUM 100 MG CAPSULE PO SCH ×2 (08:10→16:41)
[2018-12-23 16:16] VITALS: BP 112/58
[2018-12-23 19:47] VITALS: BP 113/68
[2018-12-23] MEDS: DIVALPROEX 250 MG TABLET.DR PO SCH (20:16)
[2018-12-23] MEDS: OLANZAPINE ZYDIS 5 MG TAB.RAPDIS PO SCH (20:16)
--- NOTE | 2018-12-24 05:51 | NUR ---
Patient has been up since 330am when he urinated all over himself and bathroom floor. Patient was cleaned and dry cloths put on. Total sleep last night was 5 hours. Patient has spent most of this am talking and laughing to self. Continuing to monitor for safety.
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
[2018-12-24 07:15] LABS: CREATININE 1.3 mg/dL (0.6-1.3); MAGNESIUM 2.2 mg/dL (1.8-2.4); PHOSPHOROUS 3.8 mg/dL (2.5-4.9); POTASSIUM 4.1 mmol/L (3.5-5.1); URIC ACID 6.5 mg/dL (3.5-7.2)
[2018-12-24 07:30] VITALS: BP 129/87
[2018-12-24] MEDS: OLANZAPINE 5 MG TABLET PO SCH (08:09)
[2018-12-24] MEDS: CHOLECALCIFEROL 1,000 UNIT TABLET PO SCH (08:09)
[2018-12-24] MEDS: POTASSIUM CHLORIDE 20 MEQ TAB.PRT.SR PO SCH (08:09)
[2018-12-24] MEDS: DOCUSATE SODIUM 100 MG CAPSULE PO SCH ×2 (08:09→16:09)
[2018-12-24] MEDS: DIVALPROEX 500 MG TABLET.DR PO SCH (08:09)
[2018-12-24] MEDS: LOSARTAN POTASSIUM 50 MG TABLET PO SCH (08:10)
[2018-12-24 08:44] LABS: THYROID STIMULATING HORMONE 0.953 mIU/mL (0.358-3.740)
--- NOTE | 2018-12-24 09:19 | NUR ---
NOTIFIED CONTROL PANEL OPERATOR CRUDE UNIT FOR CONSULT
--- NOTE | 2018-12-24 09:47 | NUR ---
Discharge note Patient will be discharged back to [facility] [[address] [place] [address]; [phone]]. Please arrange Ambulance transportation for patient at 1:00pm. Spoke with Ramos [Admin Coordinator] at the facility who states they are ready to accept the patient back today. Patient is aware and agreeable with discharge plans. Patient does not have any family contacts at this time. Patient is alert and oriented x4, is able to plan for self-care, and denies any SI/HI. Patient will follow-up at the facility with Dr. Mart (Psychiatrist) and Dr. Miller (Primary Care Physician). Patient was provided with outpatient mental health resources to [facility] Crisis Line , and the National Suicide Prevention Lifeline . Addendum: 12/24/18 at 1020 by HARJINDER MANRIQUEZ Cancel Ambulance transportation. --Transportation will be provided by Paul; [phone] by 1:00pm.
[2018-12-24 16:14] VITALS: BP 113/72
[2018-12-24] MEDS ORDERED: OLANZAPINE ZYDIS 5 MG TAB.RAPDIS PO SCH (21:00)
== END 2018-12-24 17:00 | DRG 885 ==
LOC: ER 21:25 → GPS 23:25
PROVIDERS: ADMIT Psychiatry & Neurology Psychiatry; ATTEND Registered Nurse
DX: F29 Unspecified psychosis not due to a substance or known physiological condition (principal); F01.51 Vascular dementia, unspecified severity, with behavioral disturbance; N17.0 Acute kidney failure with tubular necrosis; N18.9 Chronic kidney disease, unspecified; I13.0 Hypertensive heart and chronic kidney disease with heart failure and stage 1 through stage 4 chronic kidney disease, or unspecified chronic kidney disease; E87.1 Hypo-osmolality and hyponatremia; E46 Unspecified protein-calorie malnutrition; J44.9 Chronic obstructive pulmonary disease, unspecified; Z79.899 Other long term (current) drug therapy; B35.3 Tinea pedis; E86.0 Dehydration; D64.9 Anemia, unspecified; E66.9 Obesity, unspecified; Z68.28 Body mass index [BMI] 28.0-28.9, adult; I50.9 Heart failure, unspecified; L84 Corns and callosities; L85.3 Xerosis cutis; I25.10 Atherosclerotic heart disease of native coronary artery without angina pectoris; F39 Unspecified mood [affective] disorder
CPT/HCPCS: 36415; 76770; 80164; 80307; 83735; 83970; 84100; 84156; 84300; 84443; 84550; 85025; A4663; G0480; G0480-TC; J3490; J3590; Q9958

== ENCOUNTER 2019-02-07 15:48 | Inpatient (IN) | payer MEDICARE ==
[~2019-02-07] VITALS: Ht 170.2 cm; Wt 86.6 kg
[~2019-02-07 15:48] MED LIST changes: +CICL15CR12 TP; +TRIA15OI9 TP; +[UNRECOGNIZED DRUG - SUPPLY] INH
[2019-02-07 16:12] LABS: BASOPHILS # (AUTO) 0.1 K/uL (0.0-8.0); BASOPHILS % (AUTO) 1.9 % (0.0-2.0); EOSINOPHILS # (AUTO) 0.3 K/uL (0.0-0.7); EOSINOPHILS % (AUTO) 5.3 % (0.0-7.0); HEMATOCRIT 41.9 % (36.7-47.1); HEMOGLOBIN 13.7 g/dL (12.5-16.3); LYMPHOCYTES # (AUTO) 1.7 K/uL (20.0-40.0); LYMPHOCYTES % (AUTO) 28.6 % (20.5-51.5); MEAN CORPUSCULAR HEMOGLOBIN 31.8 uug (23.8-33.4); MEAN CORPUSCULAR HGB CONC 33 g/dL (32.5-36.3); MEAN CORPUSCULAR VOLUME 97.1 fL (73.0-96.2); MONOCYTES # (AUTO) 0.8 K/uL (2.0-10.0); NEUTROPHILS # (AUTO) 2.9 K/uL (1.8-8.9); NEUTROPHILS % (AUTO) 50.2 % (38.5-71.5); PLATELET COUNT (AUTO) 135 K/uL (152-348); RED BLOOD CELL COUNT(AUTO) 4.31 MIL/uL (4.06-5.63); WHITE BLOOD COUNT (AUTO) 5.9 K/uL (3.6-10.2)
[2019-02-07] MEDS ORDERED: NICO-672 TD (16:23)
[2019-02-07] MEDS ORDERED: CLON1TAB12 PO (16:23)
[2019-02-07] MEDS ORDERED: LORA1TAB PO (16:23)
[2019-02-07] MEDS ORDERED: DIVA-78 PO (16:23)
[2019-02-07] MEDS ORDERED: DOCU-270 PO (16:23)
[2019-02-07] MEDS ORDERED: TEMA30CA PO (16:23)
[2019-02-07] MEDS ORDERED: ACET-2154 PO (16:23)
[2019-02-07] MEDS ORDERED: CHOL200059 PO (16:23)
[2019-02-07] MEDS ORDERED: LOSA50TA39 PO (16:23)
[2019-02-07 16:25] LABS: ALANINE AMINOTRANSFERASE 51 U/L (16-63); ALKALINE PHOSPHATASE 118 U/L (50-136); ASPARTATE AMINOTRANSFERASE 39 U/L (15-37); BILIRUBIN,DIRECT 0.2 mg/dL (0.0-0.2); BILIRUBIN,TOTAL 0.4 mg/dL (0.2-1.0); CARBON DIOXIDE 24 mmol/L (21-32); CHLORIDE 110 mmol/L (98-107); CREATININE 1.2 mg/dL (0.6-1.3); GLUCOSE 124 mg/dL (74-106); POTASSIUM 4.5 mmol/L (3.5-5.1); TOTAL PROTEIN, SERUM 7.3 g/dL (6.4-8.2); UREA NITROGEN, BLOOD 21 mg/dL (7-18)
[2019-02-07 16:26] LABS: ACETAMINOPHEN < 2.0 ug/mL (10-30)
[2019-02-07 16:27] LABS: ETHANOL < 3 MG/DL (0-0)
[2019-02-07 17:55] LABS: *BILIRUBIN,URIN NEGATIVE (NEGATIVE); *BLOOD, URINE NEGATIVE (NEGATIVE); *CLARITY,URINE CLEAR (CLEAR); *COLOR,URINE YELLOW (YELLOW); *KETONES,URINE NEGATIVE (NEGATIVE); *UROBILINOGEN,URINE 0.2 E.U./dl (NORMAL); LEUKOCYTE ESTERASE ,URINE NEGATIVE (NEGATIVE); NITRITE, URINE NEGATIVE (NEGATIVE); PH,URINE 6.5 (5.0-8.0); UGLUCOSE NEGATIVE (NEGATIVE)
[2019-02-07 18:08] LABS: *AMPHETAMINE, URINE NEGATIVE (NEGATIVE); *BARBITURATE, URINE NEGATIVE (NEGATIVE); *CANNABINOID, URINE NEGATIVE (NEGATIVE); *COCCAINE, URINE NEGATIVE (NEGATIVE); *OPIATE, URINE NEGATIVE (NEGATIVE); *PHENCYCLIDINE SCREEN,URINE NEGATIVE (NEGATIVE)
[2019-02-07] MEDS ORDERED: MAGNESIUM HYDROXIDE 30 ML LIQUID UDC PO PRN (19:15)
[2019-02-07] MEDS ORDERED: MAG HYDROX/AL HYDROX/SIMETH 30 ML LIQUID UDC PO PRN (19:15)
[2019-02-07] MEDS ORDERED: BLOOD SUGAR DIAGNOSTIC 1 EACH STRIP VI ONE (19:15)
[2019-02-07] MEDS ORDERED: ACETAMINOPHEN 325 MG TABLET PO PRN ×2 (19:15→21:45)
[2019-02-07 20:40] VITALS: BP 150/81
[2019-02-07] MEDS ORDERED: ALBUTEROL SULFATE 2.5 MG/3 ML NEBU NEB PRN (21:45)
[2019-02-07] MEDS ORDERED: IPRATROPIUM BROMIDE 0.5 MG/2.5 ML NEBU NEB PRN (21:45)
[2019-02-08 07:30] VITALS: BP 151/105
[2019-02-08] MEDS: CHOLECALCIFEROL 1,000 UNIT TABLET PO SCH (08:33)
[2019-02-08] MEDS: DOCUSATE SODIUM 100 MG CAPSULE PO SCH ×2 (08:33→17:10)
[2019-02-08] MEDS: LOSARTAN POTASSIUM 50 MG TABLET PO SCH (08:33)
[2019-02-08] MEDS: POTASSIUM CHLORIDE 20 MEQ TAB.PRT.SR PO SCH (08:42)
[2019-02-08] MEDS: FUROSEMIDE 40 MG TABLET PO SCH (08:42)
[2019-02-08] MEDS: NICOTINE 14 MG/24HR PATCH TD SCH (08:45)
[2019-02-08 08:50] LABS: BASOPHILS # (AUTO) 0.1 K/uL (0.0-8.0); BASOPHILS % (AUTO) 1.8 % (0.0-2.0); EOSINOPHILS # (AUTO) 0.2 K/uL (0.0-0.7); EOSINOPHILS % (AUTO) 3.5 % (0.0-7.0); HEMOGLOBIN 13.6 g/dL (12.5-16.3); LYMPHOCYTES % (AUTO) 18.3 % (20.5-51.5); MEAN CORPUSCULAR HEMOGLOBIN 32.3 uug (23.8-33.4); MEAN CORPUSCULAR HGB CONC 33 g/dL (32.5-36.3); MEAN CORPUSCULAR VOLUME 97.2 fL (73.0-96.2); MONOCYTES # (AUTO) 0.7 K/uL (2.0-10.0); MONOCYTES % (AUTO) 13.6 % (0.0-11.0); NEUTROPHILS # (AUTO) 3.3 K/uL (1.8-8.9); NEUTROPHILS % (AUTO) 62.8 % (38.5-71.5); PLATELET COUNT (AUTO) 135 K/uL (152-348); RED BLOOD CELL COUNT(AUTO) 4.22 MIL/uL (4.06-5.63); WHITE BLOOD COUNT (AUTO) 5.3 K/uL (3.6-10.2)
[2019-02-08] MEDS ORDERED: CICLOPIROX 0.77% CREAM 30 GM TUBE TP SCH (09:00)
[2019-02-08 09:16] LABS: THYROID STIMULATING HORMONE 0.807 mIU/mL (0.358-3.740)
[2019-02-08 09:20] LABS: BILIRUBIN,TOTAL 0.6 mg/dL (0.2-1.0); CREATININE 1.2 mg/dL (0.6-1.3); TOTAL PROTEIN, SERUM 7.6 g/dL (6.4-8.2)
[2019-02-08 09:40] LABS: PHOSPHOROUS 3.9 mg/dL (2.5-4.9)
[2019-02-08] MEDS: OLANZAPINE 5 MG TABLET PO SCH ×2 (12:10→17:10)
[2019-02-08] MEDS: DIVALPROEX 500 MG TABLET.DR PO SCH ×2 (12:31→17:19)
[2019-02-08 16:45] VITALS: BP 141/99
[2019-02-08 20:28] VITALS: BP 126/86
[2019-02-08] MEDS: TEMAZEPAM 7.5 MG CAPSULE PO PRN (21:07)
[2019-02-09 07:30] VITALS: BP 142/92
[2019-02-09] MEDS: CHOLECALCIFEROL 1,000 UNIT TABLET PO SCH (08:20)
[2019-02-09] MEDS: LOSARTAN POTASSIUM 50 MG TABLET PO SCH (08:20)
[2019-02-09] MEDS: OLANZAPINE 5 MG TABLET PO SCH ×2 (08:21→17:12)
[2019-02-09] MEDS: DOCUSATE SODIUM 100 MG CAPSULE PO SCH ×2 (08:21→17:12)
[2019-02-09] MEDS: DIVALPROEX 500 MG TABLET.DR PO SCH ×3 (08:21→17:12)
[2019-02-09] MEDS: POTASSIUM CHLORIDE 20 MEQ TAB.PRT.SR PO SCH (08:25)
[2019-02-09] MEDS: FUROSEMIDE 40 MG TABLET PO SCH (08:28)
[2019-02-09] MEDS: NICOTINE 14 MG/24HR PATCH TD SCH (08:29)
[2019-02-09 15:27] VITALS: BP 114/77
[2019-02-09 20:00] VITALS: BP 127/87
[2019-02-09] MEDS: TEMAZEPAM 7.5 MG CAPSULE PO PRN (22:23)
[2019-02-10 07:30] VITALS: BP 128/89
[2019-02-10] MEDS: DIVALPROEX 500 MG TABLET.DR PO SCH ×3 (08:17→16:16)
[2019-02-10] MEDS: POTASSIUM CHLORIDE 20 MEQ TAB.PRT.SR PO SCH (08:18)
[2019-02-10] MEDS: CHOLECALCIFEROL 1,000 UNIT TABLET PO SCH (08:18)
[2019-02-10] MEDS: LOSARTAN POTASSIUM 50 MG TABLET PO SCH (08:18)
[2019-02-10] MEDS: OLANZAPINE 5 MG TABLET PO SCH ×2 (08:18→20:04)
[2019-02-10] MEDS: DOCUSATE SODIUM 100 MG CAPSULE PO SCH ×2 (08:18→16:16)
[2019-02-10] MEDS: FUROSEMIDE 40 MG TABLET PO SCH (08:20)
[2019-02-10] MEDS: NICOTINE 14 MG/24HR PATCH TD SCH (08:23)
[2019-02-10 12:52] LABS: BASOPHILS % (AUTO) 0.9 % (0.0-2.0); EOSINOPHILS # (AUTO) 0.2 K/uL (0.0-0.7); EOSINOPHILS % (AUTO) 4.4 % (0.0-7.0); HEMATOCRIT 41.6 % (36.7-47.1); HEMOGLOBIN 13.7 g/dL (12.5-16.3); LYMPHOCYTES # (AUTO) 1.4 K/uL (20.0-40.0); MEAN CORPUSCULAR HEMOGLOBIN 32.2 uug (23.8-33.4); MEAN CORPUSCULAR HGB CONC 33 g/dL (32.5-36.3); MEAN CORPUSCULAR VOLUME 97.5 fL (73.0-96.2); MONOCYTES # (AUTO) 0.9 K/uL (2.0-10.0); MONOCYTES % (AUTO) 16.4 % (0.0-11.0); NEUTROPHILS # (AUTO) 2.9 K/uL (1.8-8.9); NEUTROPHILS % (AUTO) 52.3 % (38.5-71.5); PLATELET COUNT (AUTO) 139 K/uL (152-348); RED BLOOD CELL COUNT(AUTO) 4.26 MIL/uL (4.06-5.63); WHITE BLOOD COUNT (AUTO) 5.5 K/uL (3.6-10.2)
[2019-02-10 13:08] LABS: BILIRUBIN,TOTAL 0.7 mg/dL (0.2-1.0); CREATININE 1.4 mg/dL (0.6-1.3); POTASSIUM 4.3 mmol/L (3.5-5.1); TOTAL PROTEIN, SERUM 7.8 g/dL (6.4-8.2)
[2019-02-10 13:47] LABS: EOSINOPHILS % (MANUAL) 9 % (0-8); LYMPHOCYTES % (MANUAL) 22 % (20-40); MONOCYTES % (MANUAL) 10 % (2-10); NEUTROPHILS % (MANUAL) 59 % (42-75)
[2019-02-10 15:01] VITALS: BP 128/81
[2019-02-10 20:09] VITALS: BP 124/94
[2019-02-10] MEDS ORDERED: OLANZAPINE 2.5 MG TABLET PO SCH (21:00)
[2019-02-11 07:30] VITALS: BP 131/80
[2019-02-11] MEDS: DIVALPROEX 500 MG TABLET.DR PO SCH ×3 (08:46→16:30)
[2019-02-11] MEDS: DOCUSATE SODIUM 100 MG CAPSULE PO SCH ×2 (08:46→16:30)
[2019-02-11] MEDS: OLANZAPINE 5 MG TABLET PO SCH ×2 (08:47→20:02)
[2019-02-11] MEDS: POTASSIUM CHLORIDE 20 MEQ TAB.PRT.SR PO SCH (08:47)
[2019-02-11] MEDS: LOSARTAN POTASSIUM 50 MG TABLET PO SCH (08:47)
[2019-02-11] MEDS: CHOLECALCIFEROL 1,000 UNIT TABLET PO SCH (08:47)
[2019-02-11] MEDS: FUROSEMIDE 40 MG TABLET PO SCH (08:49)
[2019-02-11] MEDS: NICOTINE 14 MG/24HR PATCH TD SCH (08:56)
[2019-02-11 16:06] VITALS: BP 127/78
[2019-02-11] MEDS: DIVALPROEX ER 500 MG TAB.SR.24H PO SCH (20:02)
[2019-02-11 20:17] VITALS: BP 124/84
[2019-02-12 07:30] VITALS: BP 124/89
[2019-02-12] MEDS: DOCUSATE SODIUM 100 MG CAPSULE PO SCH ×2 (08:57→16:28)
[2019-02-12] MEDS: NICOTINE 14 MG/24HR PATCH TD SCH ×2 (08:57→09:00)
[2019-02-12] MEDS: DIVALPROEX 500 MG TABLET.DR PO SCH ×3 (08:58→16:28)
[2019-02-12] MEDS: CHOLECALCIFEROL 1,000 UNIT TABLET PO SCH (08:58)
[2019-02-12] MEDS: OLANZAPINE 5 MG TABLET PO SCH ×2 (08:58→20:22)
[2019-02-12] MEDS: LOSARTAN POTASSIUM 50 MG TABLET PO SCH (08:58)
[2019-02-12] MEDS: POTASSIUM CHLORIDE 20 MEQ TAB.PRT.SR PO SCH (08:59)
[2019-02-12] MEDS: FUROSEMIDE 40 MG TABLET PO SCH ×2 (09:00→16:28)
[2019-02-12] MEDS ORDERED: FUROSEMIDE 20 MG TABLET PO ONE (13:15)
[2019-02-12 15:13] VITALS: BP 128/88
[2019-02-12 20:00] VITALS: BP 128/80
[2019-02-12] MEDS: DIVALPROEX ER 500 MG TAB.SR.24H PO SCH (20:22)
[2019-02-12] MEDS: CLONAZEPAM 0.5 MG TABLET PO PRN (20:22)
[2019-02-13 07:48] LABS: CREATININE 1.2 mg/dL (0.6-1.3)
[2019-02-13 07:50] VITALS: BP 127/85
[2019-02-13] MEDS: LOSARTAN POTASSIUM 50 MG TABLET PO SCH (08:37)
[2019-02-13] MEDS: OLANZAPINE 2.5 MG TABLET PO SCH (08:37)
[2019-02-13] MEDS: CHOLECALCIFEROL 1,000 UNIT TABLET PO SCH (08:37)
[2019-02-13] MEDS: POTASSIUM CHLORIDE 20 MEQ TAB.PRT.SR PO SCH (08:37)
[2019-02-13] MEDS: DIVALPROEX 500 MG TABLET.DR PO SCH ×3 (08:37→18:01)
[2019-02-13] MEDS: DOCUSATE SODIUM 100 MG CAPSULE PO SCH ×2 (08:37→18:00)
[2019-02-13] MEDS: NICOTINE 14 MG/24HR PATCH TD SCH (08:42)
[2019-02-13] MEDS ORDERED: OLANZAPINE 5 MG TABLET PO SCH (09:00)
[2019-02-13 16:39] VITALS: BP 128/82
[2019-02-13] MEDS: DIVALPROEX ER 500 MG TAB.SR.24H PO SCH (20:05)
[2019-02-13] MEDS: OLANZAPINE 5 MG TABLET PO SCH (20:05)
[2019-02-13] MEDS: FUROSEMIDE 40 MG TABLET PO SCH (20:06)
[2019-02-13 20:23] VITALS: BP 134/77
[2019-02-14 07:30] VITALS: BP 150/90
[2019-02-14 07:50] LABS: CREATININE 1.2 mg/dL (0.6-1.3); POTASSIUM 3.9 mmol/L (3.5-5.1)
[2019-02-14] MEDS: NICOTINE 14 MG/24HR PATCH TD SCH (09:00)
[2019-02-14] MEDS: FUROSEMIDE 40 MG TABLET PO SCH ×2 (09:43→16:42)
[2019-02-14] MEDS: DIVALPROEX 500 MG TABLET.DR PO SCH ×3 (09:43→16:41)
[2019-02-14] MEDS: POTASSIUM CHLORIDE 20 MEQ TAB.PRT.SR PO SCH (09:44)
[2019-02-14] MEDS: DOCUSATE SODIUM 100 MG CAPSULE PO SCH ×2 (09:44→16:40)
[2019-02-14] MEDS: LOSARTAN POTASSIUM 50 MG TABLET PO SCH (09:44)
[2019-02-14] MEDS: CHOLECALCIFEROL 1,000 UNIT TABLET PO SCH (09:44)
[2019-02-14] MEDS: OLANZAPINE 2.5 MG TABLET PO SCH (09:45)
[2019-02-14 16:00] VITALS: BP 145/91
[2019-02-14] MEDS: OLANZAPINE 5 MG TABLET PO SCH ×2 (16:14→17:00)
[2019-02-14 20:52] VITALS: BP 114/80
[2019-02-14] MEDS: DIVALPROEX ER 500 MG TAB.SR.24H PO SCH (21:02)
[2019-02-14] MEDS: TEMAZEPAM 7.5 MG CAPSULE PO PRN (21:49)
[2019-02-15 08:47] VITALS: BP 134/90
[2019-02-15] MEDS: DIVALPROEX 500 MG TABLET.DR PO SCH ×3 (08:51→16:43)
[2019-02-15] MEDS: CHOLECALCIFEROL 1,000 UNIT TABLET PO SCH (08:51)
[2019-02-15] MEDS: DOCUSATE SODIUM 100 MG CAPSULE PO SCH ×2 (08:51→16:43)
[2019-02-15] MEDS: LOSARTAN POTASSIUM 50 MG TABLET PO SCH (08:52)
[2019-02-15] MEDS: OLANZAPINE 5 MG TABLET PO SCH ×2 (08:52→16:43)
[2019-02-15] MEDS: POTASSIUM CHLORIDE 20 MEQ TAB.PRT.SR PO SCH (08:52)
[2019-02-15] MEDS: NICOTINE 14 MG/24HR PATCH TD SCH (09:00)
[2019-02-15] MEDS: FUROSEMIDE 20 MG TABLET PO SCH ×2 (09:14→16:43)
[2019-02-15 16:00] VITALS: BP 127/88
[2019-02-15] MEDS: DIVALPROEX ER 500 MG TAB.SR.24H PO SCH (20:19)
[2019-02-15 20:37] VITALS: BP 158/101
[2019-02-15] MEDS: CLONAZEPAM 0.5 MG TABLET PO PRN (21:07)
[2019-02-16 07:46] VITALS: BP_SYST 100; BP_SYST 139; BP_DIAS 60; BP_DIAS 91
[2019-02-16] MEDS: DIVALPROEX 500 MG TABLET.DR PO SCH ×3 (08:30→17:00)
[2019-02-16] MEDS: DOCUSATE SODIUM 100 MG CAPSULE PO SCH ×2 (08:30→17:00)
[2019-02-16] MEDS: CHOLECALCIFEROL 1,000 UNIT TABLET PO SCH (08:30)
[2019-02-16] MEDS: LOSARTAN POTASSIUM 50 MG TABLET PO SCH (08:31)
[2019-02-16] MEDS: OLANZAPINE 5 MG TABLET PO SCH ×2 (08:32→19:07)
[2019-02-16] MEDS: POTASSIUM CHLORIDE 20 MEQ TAB.PRT.SR PO SCH (08:32)
[2019-02-16] MEDS: FUROSEMIDE 20 MG TABLET PO SCH ×2 (08:34→17:00)
[2019-02-16] MEDS: NICOTINE 14 MG/24HR PATCH TD SCH (08:36)
[2019-02-16] MEDS ORDERED: CLONIDINE HCL 0.1 MG TABLET PO PRN (15:30)
[2019-02-16 15:47] VITALS: BP 110/74
[2019-02-16 19:32] VITALS: BP 131/92
[2019-02-16] MEDS: DIVALPROEX ER 500 MG TAB.SR.24H PO SCH (21:00)
[2019-02-17 07:30] VITALS: BP 147/97
[2019-02-17] MEDS: CHOLECALCIFEROL 1,000 UNIT TABLET PO SCH (08:46)
[2019-02-17] MEDS: DIVALPROEX 500 MG TABLET.DR PO SCH ×3 (08:46→16:32)
[2019-02-17] MEDS: OLANZAPINE 5 MG TABLET PO SCH ×2 (08:46→16:32)
[2019-02-17] MEDS: LOSARTAN POTASSIUM 50 MG TABLET PO SCH (08:46)
[2019-02-17] MEDS: POTASSIUM CHLORIDE 20 MEQ TAB.PRT.SR PO SCH (08:46)
[2019-02-17] MEDS: DOCUSATE SODIUM 100 MG CAPSULE PO SCH ×2 (08:46→16:32)
[2019-02-17] MEDS: NICOTINE 14 MG/24HR PATCH TD SCH (08:47)
[2019-02-17] MEDS: FUROSEMIDE 20 MG TABLET PO SCH ×2 (09:36→16:32)
[2019-02-17 15:36] VITALS: BP 110/75
[2019-02-17] MEDS: DIVALPROEX ER 500 MG TAB.SR.24H PO SCH (20:03)
[2019-02-17] MEDS: TEMAZEPAM 7.5 MG CAPSULE PO PRN (20:06)
[2019-02-17 20:45] VITALS: BP 138/84
[2019-02-18 07:30] VITALS: BP 121/94
[2019-02-18] MEDS: DIVALPROEX 500 MG TABLET.DR PO SCH ×3 (08:31→16:55)
[2019-02-18] MEDS: OLANZAPINE 5 MG TABLET PO SCH ×2 (08:31→16:55)
[2019-02-18] MEDS: CHOLECALCIFEROL 1,000 UNIT TABLET PO SCH (08:31)
[2019-02-18] MEDS: NICOTINE 14 MG/24HR PATCH TD SCH (08:32)
[2019-02-18] MEDS: DOCUSATE SODIUM 100 MG CAPSULE PO SCH ×2 (08:32→16:55)
[2019-02-18] MEDS: FUROSEMIDE 20 MG TABLET PO SCH ×2 (08:32→17:12)
[2019-02-18] MEDS: LOSARTAN POTASSIUM 50 MG TABLET PO SCH (08:32)
[2019-02-18] MEDS: POTASSIUM CHLORIDE 20 MEQ TAB.PRT.SR PO SCH (08:32)
[2019-02-18 15:23] VITALS: BP 123/74
[2019-02-18 20:00] VITALS: BP 129/82
[2019-02-18] MEDS: DIVALPROEX ER 500 MG TAB.SR.24H PO SCH (20:01)
[2019-02-19 07:30] VITALS: BP 130/96
[2019-02-19] MEDS: DOCUSATE SODIUM 100 MG CAPSULE PO SCH ×2 (08:28→16:42)
[2019-02-19] MEDS: DIVALPROEX 500 MG TABLET.DR PO SCH ×3 (08:28→16:42)
[2019-02-19] MEDS: CHOLECALCIFEROL 1,000 UNIT TABLET PO SCH (08:29)
[2019-02-19] MEDS: FUROSEMIDE 20 MG TABLET PO SCH ×2 (08:29→16:42)
[2019-02-19] MEDS: OLANZAPINE 5 MG TABLET PO SCH ×2 (08:29→16:41)
[2019-02-19] MEDS: POTASSIUM CHLORIDE 20 MEQ TAB.PRT.SR PO SCH (08:29)
[2019-02-19] MEDS: LOSARTAN POTASSIUM 50 MG TABLET PO SCH (08:30)
[2019-02-19] MEDS: NICOTINE 14 MG/24HR PATCH TD SCH (08:30)
[2019-02-19 15:08] VITALS: BP 126/84
[2019-02-19 20:23] VITALS: BP 106/65
[2019-02-19] MEDS: DIVALPROEX ER 500 MG TAB.SR.24H PO SCH (20:34)
[2019-02-20] MEDS: TEMAZEPAM 7.5 MG CAPSULE PO PRN (00:34)
[2019-02-20 07:30] VITALS: BP 127/90
[2019-02-20] MEDS: CHOLECALCIFEROL 1,000 UNIT TABLET PO SCH (09:00)
[2019-02-20] MEDS: DIVALPROEX 500 MG TABLET.DR PO SCH ×2 (09:00→12:57)
[2019-02-20] MEDS: DOCUSATE SODIUM 100 MG CAPSULE PO SCH (09:00)
[2019-02-20] MEDS: OLANZAPINE 5 MG TABLET PO SCH (09:00)
[2019-02-20 09:01] VITALS: BP 127/90
[2019-02-20] MEDS: NICOTINE 14 MG/24HR PATCH TD SCH (09:01)
[2019-02-20] MEDS: FUROSEMIDE 20 MG TABLET PO SCH (09:01)
[2019-02-20] MEDS: POTASSIUM CHLORIDE 20 MEQ TAB.PRT.SR PO SCH (09:01)
[2019-02-20] MEDS: LOSARTAN POTASSIUM 50 MG TABLET PO SCH (09:01)
== END 2019-02-20 13:05 | DRG 885 ==
LOC: ER 15:50 → GPS 18:23
PROVIDERS: ADMIT Psychiatry & Neurology Psychiatry; ATTEND Nurse Practitioner Acute Care
DX: F25.0 Schizoaffective disorder, bipolar type (principal); N18.9 Chronic kidney disease, unspecified; N17.0 Acute kidney failure with tubular necrosis; I13.0 Hypertensive heart and chronic kidney disease with heart failure and stage 1 through stage 4 chronic kidney disease, or unspecified chronic kidney disease; J44.9 Chronic obstructive pulmonary disease, unspecified; I50.9 Heart failure, unspecified; F17.210 Nicotine dependence, cigarettes, uncomplicated; D69.6 Thrombocytopenia, unspecified; D63.8 Anemia in other chronic diseases classified elsewhere; Z91.19 Patient's noncompliance with other medical treatment and regimen; Z79.899 Other long term (current) drug therapy
CPT/HCPCS: 36415; 70030-TC; 80164; 80307; 83735; 84100; 84132; 84443; 85025; 93005; A4663; G0480; G0480-TC